=== PATIENT | female | born 1975 | race Two or more races ===

== ENCOUNTER 2017-05-06 14:09 | Inpatient (IN) | payer BC, OTHER ==
[~2017-05-06] VITALS: Ht 157.5 cm; Wt 63.6 kg
[2017-05-06 16:36] LABS: Basophils # (auto) 0 uL; Eosinophils # (auto) 0.2 uL; Hemoglobin 14.3 g/dL (12.2-16.2); Lymphocytes # (auto) 1.8 uL; Monocytes # (auto) 0.6 uL; Monocytes % (auto) 7.1 % (0.0-12.0); Neutrophils # (auto) 5.9 uL; Neutrophils % (auto) 68.8 % (37.0-80.0); White Blood Cell 8.6 10^3/uL (4.4-10.8)
[2017-05-06 16:38] LABS: Basophils % (auto) 0.3 % (0.0-2.0); Eosinophils % (auto) 2.7 % (0.0-7.0); Hematocrit 41.9 % (36.0-46.0); Lymphocytes % (auto) 21.1 % (10.0-50.0); Mean Corpuscular Hgb Conc. 34.1 g/dL (32.0-36.0); Mean Corpuscular Volume 99.5 fL (80.0-100.0); Platelet Count (auto) 313 10^3/uL (140-450); Red Blood Cells 4.21 10^6/uL (4.0-5.20)
[2017-05-06 16:47] LABS: Albumin 3.9 g/dL (3.4-5.0); BUN/Creatinine Ratio 20.6; Bilirubin, Total 0.2 mg/dL (0.2-1.0); Calcium 8.7 mg/dL (8.5-10.1); Potassium 3.6 mmol/L (3.5-5.1); Total Protein 8.4 g/dL (6.4-8.2)
[2017-05-06] MEDS ORDERED: VANCOMYCIN 1GM/250ML 250 ML IV ONE (20:30)
[2017-05-06] MEDS ORDERED: cefTRIAXone 1GM/10ml IVPUSH 10 ML IV ONE (20:30)
[2017-05-06] MEDS ORDERED: methylPREDNISolone SOD SUCC 125 MG/2 ML VL ONE (20:51)
[2017-05-06] MEDS ORDERED: diphenhdrAMINE HCL 50 MG/1 ML VL ONE (20:51)
[2017-05-06] MEDS ORDERED: ONDANSETRON HCL 4 MG/2 ML VIAL IV PRN (23:15)
[2017-05-06] MEDS ORDERED: LACTULOSE 20Gm/30ML SOLN PO PRN (23:15)
[2017-05-06] MEDS ORDERED: ACETAMINOPHEN 500 MG TAB PO PRN (23:15)
[2017-05-06] MEDS ORDERED: HYDROcodone-ACET 5/325MG TAB PO PRN (23:15)
[2017-05-06] MEDS ORDERED: TEMAZEPAM 15 MG CAP PO PRN (23:15)
[2017-05-06] MEDS ORDERED: ALBUTEROL SULF 2.5 MG/0.5ML(0.5%) NEB SOLN NEB PRN (23:15)
[2017-05-06 23:55] LABS: Eosinophils # (auto) 0.1 uL; Eosinophils % (auto) 0.5 % (0.0-7.0); Monocytes # (auto) 0.3 uL
[2017-05-06 23:56] LABS: Basophils # (auto) 0.1 uL; Basophils % (auto) 0.5 % (0.0-2.0); Hematocrit 41.2 % (36.0-46.0); Hemoglobin 14.2 g/dL (12.2-16.2); Lymphocytes % (auto) 9.1 % (10.0-50.0); Mean Corpuscular Hemoglobin 34.1 pg (28.0-32.0); Mean Corpuscular Hgb Conc. 34.4 g/dL (32.0-36.0); Mean Corpuscular Volume 99.2 fL (80.0-100.0); Monocytes % (auto) 2.5 % (0.0-12.0); Neutrophils # (auto) 9.8 uL; Neutrophils % (auto) 87.4 % (37.0-80.0); Nucleated Red Blood Cells % 0.1 %; Red Blood Cells 4.15 10^6/uL (4.0-5.20); Red Cell Distribution Width 13.5 % (11.8-14.3); White Blood Cell 11.2 10^3/uL (4.4-10.8)
[2017-05-07 00:13] LABS: BUN/Creatinine Ratio 15.4; Calcium 8.6 mg/dL (8.5-10.1); Potassium 4.1 mmol/L (3.5-5.1)
[2017-05-07 01:12] LABS: Platelet Count (auto) 280 10^3/uL (140-450)
[2017-05-07 01:57] VITALS: BP 113/70
[2017-05-07] MEDS: CLINDAMYCIN 600MG IV 50 ML IV SCH ×3 (05:37→21:24)
[2017-05-07] MEDS: cefTRIAXone 1GM/10ml IVPUSH 10 ML IV SCH (09:09)
[2017-05-07 18:38] VITALS: BP 102/63
[2017-05-07 22:00] VITALS: BP 98/70
[2017-05-08 05:17] VITALS: BP 116/63
[2017-05-08] MEDS: CLINDAMYCIN 600MG IV 50 ML IV SCH ×3 (06:27→22:18)
[2017-05-08 09:00] VITALS: BP 102/53
[2017-05-08] MEDS: cefTRIAXone 1GM/10ml IVPUSH 10 ML IV SCH (09:00)
[2017-05-08 13:00] VITALS: BP 105/65
[2017-05-08 17:00] VITALS: BP 109/61
[2017-05-08 20:00] VITALS: BP 146/71
[2017-05-08 22:00] VITALS: BP 106/64
[2017-05-09 05:00] VITALS: BP 105/60
[2017-05-09] MEDS: CLINDAMYCIN 600MG IV 50 ML IV SCH (06:05)
[2017-05-09 09:00] VITALS: BP 91/51
[2017-05-09] MEDS: cefTRIAXone 1GM/10ml IVPUSH 10 ML IV SCH (09:10)
[2017-05-09 13:00] VITALS: BP 105/64
[2017-05-09] MEDS ORDERED: AMOX-263 PO (13:24)
== END 2017-05-09 17:00 | disposition home or self-care (01) | DRG 601 ==
LOC: ER 14:09 → OVERFLOW 14:10 → WEST WING 05-07 14:50
PROVIDERS: ADMIT Nurse Practitioner Family; ATTEND Internal Medicine
DX: N61.0 Mastitis without abscess (principal); B95.4 Other streptococcus as the cause of diseases classified elsewhere; J45.909 Unspecified asthma, uncomplicated; B95.61 Methicillin susceptible Staphylococcus aureus infection as the cause of diseases classified elsewhere; Z85.3 Personal history of malignant neoplasm of breast; Z88.1 Allergy status to other antibiotic agents; Z90.13 Acquired absence of bilateral breasts and nipples
CPT/HCPCS: 36415; 80048; 80053; 85025; 87040; 87077; 87186; 87205; 96365; 96375; J3490

== ENCOUNTER 2018-09-03 14:24 | Emergency (ER) | payer BC ==
[~2018-09-03 14:24] MED LIST: AMOX-263 PO
== END 2018-09-03 16:00 | disposition left against medical advice (07) ==
LOC: ER 14:39
DX: J45.909 Unspecified asthma, uncomplicated (principal); Z53.21 Procedure and treatment not carried out due to patient leaving prior to being seen by health care provider

== ENCOUNTER 2019-05-26 16:42 | Emergency (ER) | payer BC ==
[~2019-05-26] VITALS: Ht 157.5 cm; Wt 59.0 kg
[2019-05-26 17:39] LABS: Basophils # (auto) 0 uL; Basophils % (auto) 0.7 % (0.0-2.0); Eosinophils # (auto) 0.1 uL; Eosinophils % (auto) 1.3 % (0.0-7.0); Hematocrit 41.9 % (36.0-46.0); Hemoglobin 14.3 g/dL (12.2-16.2); Lymphocytes % (auto) 21.6 % (10.0-50.0); Mean Corpuscular Hemoglobin 33.1 pg (28.0-32.0); Mean Corpuscular Hgb Conc. 34.2 g/dL (32.0-36.0); Mean Corpuscular Volume 96.8 fL (80.0-100.0); Monocytes # (auto) 0.5 uL; Monocytes % (auto) 11.9 % (0.0-12.0); Neutrophils # (auto) 2.9 uL; Neutrophils % (auto) 64.5 % (37.0-80.0); Nucleated Red Blood Cells % 0.1 %; Platelet Count (auto) 243 10^3/uL (140-450); Red Blood Cells 4.33 10^6/uL (4.0-5.20); Red Cell Distribution Width 12.7 % (11.8-14.3); White Blood Cell 4.6 10^3/uL (4.4-10.8)
[2019-05-26 17:59] LABS: Albumin 3.7 g/dL (3.4-5.0); Calcium 8.9 mg/dL (8.5-10.1); Potassium 3.5 mmol/L (3.5-5.1)
[2019-05-26 18:06] LABS: BUN/Creatinine Ratio 15.2; Bilirubin, Total 0.2 mg/dL (0.2-1.0); Total Protein 8.4 g/dL (6.4-8.2)
[2019-05-26 19:47] LABS: Urine WBC None Seen /hpf (0 - 5)
[2019-05-26 19:56] LABS: Urine Bacteria NONE SEEN /hpf (None Seen); Urine Blood TRACE /uL (Negative); Urine Mucus FEW (None Seen); Urine Specific Gravity 1.018 (1.001-1.035)
[2019-05-26] MEDS ORDERED: ACETAMINOPHEN 650 mg PER 20 mL UD PO ONE (22:45)
[2019-05-27 01:00] VITALS: BP 117/57
[2019-05-27] MEDS ORDERED: OSELTAMIVIR 75 MG CAP PO ONE (01:15)
== END 2019-05-27 01:51 | disposition home or self-care (01) ==
LOC: ER 16:42
DX: J09.X2 Influenza due to identified novel influenza A virus with other respiratory manifestations (principal); Z85.3 Personal history of malignant neoplasm of breast
CPT/HCPCS: 36415; 70450; 71046; 80053; 81001; 81025; 83605; 85025; 87040; 87804; 93005